=== PATIENT | female | born 1940 | race Caucasian/White ===

== ENCOUNTER 2021-07-07 12:55 | Emergency (ER) | payer OTHER ==
[2021-07-07 13:05] VITALS: BP 138/60; PULSE 81; TEMP 97.3; BMI 31.4
[2021-07-07] MEDS ORDERED: SOTROVIMAB 500 MG in SODIUM CHLORIDE 100 ML IVPB ONE (13:35)
== END 2021-07-07 17:54 | disposition home or self-care (01) ==
LOC: JER 12:55
DX: U07.1 COVID-19 (principal)
CPT/HCPCS: 99284-25; M0247; Q0247

== ENCOUNTER 2022-12-30 14:28 | Inpatient (IN) | payer OTHER ==
[2022-12-30 14:46] VITALS: BMI 26.5
[2022-12-30 16:34] LABS: BASO % 0.8 % (0-2.0); HEMATOCRIT 24.6 % (32.4-45.2); HEMOGLOBIN 8.3 GM/dL (10.7-15.3); LYMPH % 20.3 % (8-40); MCH 29.4 pg (25.7-33.7); MCHC 33.8 g/dl (32.0-36.0); MEAN CELL VOLUME 86.8 fl (80-96); MEAN PLT VOLUME 6.9 fl (7.5-11.1); MONO % 7.1 % (3.8-10.2); NEUT % 69.8 % (42.8-82.8); PLATELET COUNT 266 10^3/uL (134-434); RBC 2.83 M/mm3 (3.60-5.2); RDW 14.2 % (11.6-15.6); WHITE BLOOD COUNT 8.1 K/mm3 (4.0-10.0)
[2022-12-30 16:43] LABS: INR 1.04 (0.83-1.09); PROTHROMBIN TIME (PATIENT) 12.1 SEC (9.7-13.0)
[2022-12-30 16:46] LABS: ACTIVATED PTT 32.3 SECONDS (25.2-36.5)
[2022-12-30 17:11] LABS: POTASSIUM 3.5 mmol/L (3.5-5.1)
[2022-12-30 17:13] LABS: CALCIUM 8.8 mg/dL (8.5-10.1)
[2022-12-30 17:14] LABS: ALBUMIN 3.8 g/dl (3.4-5.0); BLOOD UREA NITROGEN 103.7 mg/dL (7-18); MAGNESIUM 2.4 mg/dL (1.8-2.4)
[2022-12-30 17:17] LABS: CREATININE 6.7 mg/dL (0.55-1.3); PHOSPHOROUS 4.8 mg/dL (2.5-4.9)
[2022-12-30 17:19] LABS: BILIRUBIN,TOTAL 0.3 mg/dL (0.2-1); TOT PROT 7.6 g/dl (6.4-8.2)
[2022-12-30 17:51] LABS: EPI CELLS 9 /uL (0-25.1); HYALINE CASTS 3 /uL (0-3.1); PH,URINE 6.5 (5.0-8.0); URINE APPEARANCE CLOUDY; URINE BACTERIA >9,000 /uL (0-1359); URINE BILIRUBIN NEGATIVE (NEGATIVE); URINE COLOR YELLOW; URINE GLUCOSE (UA) 1+ (NEGATIVE); URINE KETONE NEGATIVE (NEGATIVE); URINE LEUK ESTERASE 3+ (NEGATIVE); URINE NITRITE NEGATIVE (NEGATIVE); URINE PROTEIN 2+ (NEGATIVE); URINE RBC 14 /uL (0-23.9); URINE UROBILINOGEN 0.2 mg/dL (0.2-1.0); URINE WBC 422 /uL (0-25.8)
[2022-12-31 08:57] LABS: BASO % 0.5 % (0-2.0); EOS % 2.3 % (0-4.5); HEMATOCRIT 25.2 % (32.4-45.2); HEMOGLOBIN 8.4 GM/dL (10.7-15.3); LYMPH % 16.2 % (8-40); MCH 29.1 pg (25.7-33.7); MCHC 33.4 g/dl (32.0-36.0); MEAN CELL VOLUME 87.2 fl (80-96); MEAN PLT VOLUME 7.3 fl (7.5-11.1); MONO % 5.2 % (3.8-10.2); NEUT % 75.8 % (42.8-82.8); PLATELET COUNT 259 10^3/uL (134-434); RBC 2.89 M/mm3 (3.60-5.2); RDW 13.6 % (11.6-15.6); WHITE BLOOD COUNT 8.7 K/mm3 (4.0-10.0)
[2022-12-31 09:18] LABS: POTASSIUM 3.7 mmol/L (3.5-5.1)
[2022-12-31 09:23] LABS: ALBUMIN 3.4 g/dl (3.4-5.0); BLOOD UREA NITROGEN 102.9 mg/dL (7-18); CALCIUM 8.4 mg/dL (8.5-10.1)
[2022-12-31 09:26] LABS: CREATININE 7.1 mg/dL (0.55-1.3)
[2022-12-31 09:27] LABS: BILIRUBIN,TOTAL 0.3 mg/dL (0.2-1); TOT PROT 7.3 g/dl (6.4-8.2)
[2022-12-31] MEDS ORDERED: HEPARIN NA (PORCINE) 5,000 UNITS/ML 1ML VIAL SQ SCH (10:00)
[2022-12-31 13:28] LABS: N-TERMINAL BNP 4956.8 pg/ml (5-450)
[2022-12-31] MEDS: NIFEdipine E.R. 30 MG TABLET PO SCH (14:36)
[2022-12-31] MEDS: metoPROLOL SUCCINATE 25 MG TAB.SR.24H (FP) PO SCH (14:36)
[2022-12-31] MEDS: ATORVASTATIN CA 10 MG TABLET (FP) PO SCH (14:38)
[2022-12-31] MEDS ORDERED: INSULIN (NOVOLOG) ASPART 100 UNITS/ML 10ML VIAL ONE (16:46)
[2022-12-31] MEDS: INSULIN SLIDING SCALE (NOVOLOG) 1 VIAL SQ SCH ×2 (16:48→22:01)
[2022-12-31] MEDS: SODIUM BICARBONATE 650 MG TABLET PO SCH (16:49)
[2022-12-31] MEDS: HEPARIN NA (PORCINE) 5,000 UNITS/ML 1ML VIAL SQ SCH (22:01)
[2022-12-31] MEDS ORDERED: hydrALAZINE HCL 20 MG/ML VIAL IVPUSH ONE (22:07)
[2023-01-01] MEDS: SODIUM BICARBONATE 650 MG TABLET PO SCH (06:15)
[2023-01-01] MEDS: INSULIN SLIDING SCALE (NOVOLOG) 1 VIAL SQ SCH ×4 (06:17→21:44)
[2023-01-01] MEDS ORDERED: LIDOCAINE HCL 1%, 10 MG/ML (10ML VIAL) MDV ONE (08:30)
[2023-01-01] MEDS: HEPARIN NA (PORCINE) 5,000 UNITS/ML 1ML VIAL SQ SCH ×2 (09:00→21:38)
[2023-01-01] MEDS: ATORVASTATIN CA 10 MG TABLET (FP) PO SCH ×2 (09:00→21:38)
[2023-01-01] MEDS: metoPROLOL SUCCINATE 25 MG TAB.SR.24H (FP) PO SCH (09:15)
[2023-01-01] MEDS: NIFEdipine E.R. 30 MG TABLET PO SCH (09:15)
[2023-01-01] MEDS ORDERED: MIDAZOLAM HCL 2 MG/2 ML SINGLE DOSE VIAL ONE (09:52)
[2023-01-01] MEDS ORDERED: PROPOFOL 20 ML ONE (09:52)
[2023-01-01] MEDS ORDERED: FERROUS GLUCONATE 324 MG TAB (FP) PO SCH (10:00)
[2023-01-01] MEDS ORDERED: CALCITRIOL 0.25 MCG CAPSULE (FP) PO SCH (10:00)
[2023-01-01] MEDS ORDERED: ceFAZolin SODIUM 1 GM VIAL IVPB ONE (10:10)
[2023-01-01 10:15] LABS: BASO % 0.5 % (0-2.0); EOS % 3.3 % (0-4.5); HEMOGLOBIN 8.8 GM/dL (10.7-15.3); LYMPH % 23.2 % (8-40); MCH 29.4 pg (25.7-33.7); MCHC 33.7 g/dl (32.0-36.0); MEAN CELL VOLUME 87.2 fl (80-96); MEAN PLT VOLUME 7.1 fl (7.5-11.1); MONO % 6.9 % (3.8-10.2); NEUT % 66.1 % (42.8-82.8); PLATELET COUNT 265 10^3/uL (134-434); RBC 2.99 M/mm3 (3.60-5.2); RDW 13.8 % (11.6-15.6); WHITE BLOOD COUNT 8.6 K/mm3 (4.0-10.0)
[2023-01-01] MEDS ORDERED: LIDOCAINE 1% P/F 10 MG/ML VIAL INF ONE (10:15)
[2023-01-01 10:41] LABS: POTASSIUM 3.4 mmol/L (3.5-5.1)
[2023-01-01 10:48] LABS: BLOOD UREA NITROGEN 103.6 mg/dL (7-18)
[2023-01-01 10:49] LABS: ALBUMIN 3.5 g/dl (3.4-5.0); CALCIUM 9.1 mg/dL (8.5-10.1)
[2023-01-01 10:53] LABS: BILIRUBIN,TOTAL 0.4 mg/dL (0.2-1); CREATININE 6.7 mg/dL (0.55-1.3)
[2023-01-01 10:54] LABS: TOT PROT 7.3 g/dl (6.4-8.2)
[2023-01-01] MEDS ORDERED: LACTATED RINGERS SOLUTION 1,000 ML IV SCH (11:30)
[2023-01-01] MEDS ORDERED: POTASSIUM CHLORIDE ORAL LIQUID 20 MEQ/15 ML PO ONE ×2 (12:52→17:45)
[2023-01-01] MEDS ORDERED: SODIUM CHLORIDE 250 ML IV PRN (12:52)
[2023-01-01] MEDS ORDERED: SODIUM BICARBONATE 650 MG TABLET PO SCH (16:30)
[2023-01-02] MEDS: INSULIN SLIDING SCALE (NOVOLOG) 1 VIAL SQ SCH ×4 (06:03→21:56)
[2023-01-02 10:04] LABS: POTASSIUM 3.6 mmol/L (3.5-5.1)
[2023-01-02 10:22] LABS: CALCIUM 8.8 mg/dL (8.5-10.1)
[2023-01-02 10:23] LABS: ALBUMIN 3.2 g/dl (3.4-5.0)
[2023-01-02 10:27] LABS: BILIRUBIN,TOTAL 0.3 mg/dL (0.2-1)
[2023-01-02] MEDS: HEPARIN NA (PORCINE) 5,000 UNITS/ML 1ML VIAL SQ SCH ×2 (11:10→21:55)
[2023-01-02] MEDS: FERROUS GLUCONATE 324 MG TAB (FP) PO SCH (11:11)
[2023-01-02] MEDS: NIFEdipine E.R. 30 MG TABLET PO SCH (11:11)
[2023-01-02] MEDS: CALCITRIOL 0.25 MCG CAPSULE (FP) PO SCH (11:11)
[2023-01-02] MEDS: metoPROLOL SUCCINATE 25 MG TAB.SR.24H (FP) PO SCH (11:11)
[2023-01-02 11:29] LABS: BLOOD UREA NITROGEN 69.8 mg/dL (7-18)
[2023-01-02] MEDS: ATORVASTATIN CA 10 MG TABLET (FP) PO SCH (21:55)
[2023-01-03] MEDS: INSULIN SLIDING SCALE (NOVOLOG) 1 VIAL SQ SCH ×4 (06:18→23:53)
[2023-01-03] MEDS ORDERED: SODIUM CHLORIDE 250 ML IV PRN (07:32)
[2023-01-03] MEDS ORDERED: EPOETIN ALFA-EPBX 3,000 UNIT/ML VIAL IVPUSH ONE (09:00)
[2023-01-03 10:46] LABS: HEMATOCRIT 25.8 % (32.4-45.2); HEMOGLOBIN 8.6 GM/dL (10.7-15.3); MCH 29.7 pg (25.7-33.7); MCHC 33.3 g/dl (32.0-36.0); MEAN CELL VOLUME 89.2 fl (80-96); MEAN PLT VOLUME 7.8 fl (7.5-11.1); PLATELET COUNT 267 10^3/uL (134-434); RBC 2.89 M/mm3 (3.60-5.2); RDW 13.9 % (11.6-15.6); WHITE BLOOD COUNT 9.1 K/mm3 (4.0-10.0)
[2023-01-03 11:05] LABS: POTASSIUM 3.3 mmol/L (3.5-5.1)
[2023-01-03 11:08] LABS: BLOOD UREA NITROGEN 81.6 mg/dL (7-18); CALCIUM 8.7 mg/dL (8.5-10.1)
[2023-01-03 11:12] LABS: CREATININE 5.7 mg/dL (0.55-1.3)
[2023-01-03] MEDS ORDERED: POTASSIUM CHLORIDE ORAL LIQUID 20 MEQ/15 ML PO ONE ×2 (12:41→13:30)
[2023-01-03] MEDS: CALCITRIOL 0.25 MCG CAPSULE (FP) PO SCH (12:58)
[2023-01-03] MEDS: metoPROLOL SUCCINATE 25 MG TAB.SR.24H (FP) PO SCH (12:58)
[2023-01-03] MEDS: HEPARIN NA (PORCINE) 5,000 UNITS/ML 1ML VIAL SQ SCH ×2 (12:58→23:52)
[2023-01-03] MEDS: NIFEdipine E.R. 30 MG TABLET PO SCH (12:58)
[2023-01-03] MEDS: FERROUS GLUCONATE 324 MG TAB (FP) PO SCH (14:47)
[2023-01-03] MEDS: ATORVASTATIN CA 10 MG TABLET (FP) PO SCH (23:52)
[2023-01-04] MEDS: INSULIN SLIDING SCALE (NOVOLOG) 1 VIAL SQ SCH ×4 (06:52→22:26)
[2023-01-04] MEDS: metoPROLOL SUCCINATE 25 MG TAB.SR.24H (FP) PO SCH (09:45)
[2023-01-04] MEDS: HEPARIN NA (PORCINE) 5,000 UNITS/ML 1ML VIAL SQ SCH ×2 (09:45→22:26)
[2023-01-04] MEDS: CALCITRIOL 0.25 MCG CAPSULE (FP) PO SCH (09:45)
[2023-01-04] MEDS: NIFEdipine E.R. 30 MG TABLET PO SCH (09:45)
[2023-01-04] MEDS: FERROUS GLUCONATE 324 MG TAB (FP) PO SCH (09:45)
[2023-01-04] MEDS: ATORVASTATIN CA 10 MG TABLET (FP) PO SCH (22:25)
[2023-01-05] MEDS: INSULIN SLIDING SCALE (NOVOLOG) 1 VIAL SQ SCH ×4 (06:50→23:35)
[2023-01-05] MEDS: CALCITRIOL 0.25 MCG CAPSULE (FP) PO SCH (09:22)
[2023-01-05] MEDS: NIFEdipine E.R. 30 MG TABLET PO SCH (09:22)
[2023-01-05] MEDS: FERROUS GLUCONATE 324 MG TAB (FP) PO SCH (09:22)
[2023-01-05] MEDS: metoPROLOL SUCCINATE 25 MG TAB.SR.24H (FP) PO SCH (09:22)
[2023-01-05] MEDS: HEPARIN NA (PORCINE) 5,000 UNITS/ML 1ML VIAL SQ SCH ×2 (09:23→23:27)
[2023-01-05 14:54] VITALS: RESP 18
[2023-01-05] MEDS: ATORVASTATIN CA 10 MG TABLET (FP) PO SCH (23:24)
[2023-01-05] MEDS ORDERED: INSULIN (NOVOLOG) ASPART 100 UNITS/ML 10ML VIAL ONE (23:32)
[2023-01-06] MEDS: INSULIN SLIDING SCALE (NOVOLOG) 1 VIAL SQ SCH ×3 (07:10→16:42)
[2023-01-06] MEDS ORDERED: SODIUM CHLORIDE 250 ML IV PRN (07:18)
[2023-01-06 09:56] LABS: BASO % 1.2 % (0-2.0); EOS % 3.6 % (0-4.5); HEMATOCRIT 24.4 % (32.4-45.2); HEMOGLOBIN 8.4 GM/dL (10.7-15.3); LYMPH % 19.1 % (8-40); MCH 30.7 pg (25.7-33.7); MCHC 34.3 g/dl (32.0-36.0); MEAN CELL VOLUME 89.5 fl (80-96); MEAN PLT VOLUME 7.8 fl (7.5-11.1); MONO % 8.4 % (3.8-10.2); NEUT % 67.7 % (42.8-82.8); PLATELET COUNT 277 10^3/uL (134-434); RBC 2.72 M/mm3 (3.60-5.2); RDW 13.7 % (11.6-15.6); WHITE BLOOD COUNT 9.6 K/mm3 (4.0-10.0)
[2023-01-06 11:38] LABS: POTASSIUM 3.8 mmol/L (3.5-5.1)
[2023-01-06 11:40] LABS: ALBUMIN 3.1 g/dl (3.4-5.0); BLOOD UREA NITROGEN 85.7 mg/dL (7-18); CALCIUM 8.6 mg/dL (8.5-10.1)
[2023-01-06 11:44] LABS: CREATININE 6.2 mg/dL (0.55-1.3)
[2023-01-06 11:46] LABS: BILIRUBIN,TOTAL 0.2 mg/dL (0.2-1)
[2023-01-06] MEDS: metoPROLOL SUCCINATE 25 MG TAB.SR.24H (FP) PO SCH (12:28)
[2023-01-06] MEDS: NIFEdipine E.R. 30 MG TABLET PO SCH (12:28)
[2023-01-06] MEDS: CALCITRIOL 0.25 MCG CAPSULE (FP) PO SCH (12:28)
[2023-01-06] MEDS: FERROUS GLUCONATE 324 MG TAB (FP) PO SCH (12:29)
[2023-01-06] MEDS: HEPARIN NA (PORCINE) 5,000 UNITS/ML 1ML VIAL SQ SCH (12:29)
[2023-01-06 14:07] VITALS: BP 173/96; PULSE 83; TEMP 98.1
== END 2023-01-06 18:05 | disposition home or self-care (01) | DRG 682 ==
LOC: JER 14:28 → JERBED 15:57 → J6S 18:54
PROVIDERS: ADMIT Internal Medicine; ATTEND Internal Medicine
PROC: 5A1D70Z Performance of Urinary Filtration, Intermittent, Less than 6 Hours Per Day (ICD-10-PCS; 2023-01-01)
PROC: 5A1D70Z Performance of Urinary Filtration, Intermittent, Less than 6 Hours Per Day (ICD-10-PCS; 2023-01-01)
PROC: 05HM33Z Insertion of Infusion Device into Right Internal Jugular Vein, Percutaneous Approach (ICD-10-PCS; principal; 2023-01-01 09:30)
DX: I12.0 Hypertensive chronic kidney disease with stage 5 chronic kidney disease or end stage renal disease (principal); N18.6 End stage renal disease; E87.29 Other acidosis; N39.0 Urinary tract infection, site not specified; E11.22 Type 2 diabetes mellitus with diabetic chronic kidney disease; Z99.2 Dependence on renal dialysis; E78.5 Hyperlipidemia, unspecified; D64.9 Anemia, unspecified; E87.6 Hypokalemia; I77.0 Arteriovenous fistula, acquired; B96.1 Klebsiella pneumoniae [K. pneumoniae] as the cause of diseases classified elsewhere
CPT/HCPCS: 36415; 71045-TC-FY; 76000-TC-FY; 80048; 80053; 80061; 81003; 82962; 83036; 83735; 83880; 84100; 84443; 85025; 85027; 85610; 85730; 86704; 86705; 86803; 86850; 86900; 86901; 87086; 87186; 87340; 87517; 93005; 93010; 93306-TC; 94760; 99285-25; C1750; J1644; Q5106

== ENCOUNTER 2023-04-02 04:39 | Day surgery (SDC) | payer OTHER ==
[2023-04-01 12:44] VITALS: BMI 26.2
[2023-04-02] MEDS ORDERED: HEPARIN NA (PORCINE) 5,000 UNITS/ML 1ML VIAL ONE (07:22)
[2023-04-02] MEDS ORDERED: LIDOCAINE HCL 1%, 10 MG/ML (20ML VIAL) ONE (07:22)
[2023-04-02] MEDS ORDERED: PAPAVERINE HCL 30 MG/1 ML 10 ML VIAL NR ONE (07:22)
[2023-04-02] MEDS ORDERED: PROPOFOL 20 ML ONE (07:52)
[2023-04-02] MEDS ORDERED: MIDAZOLAM HCL 2 MG/2 ML SINGLE DOSE VIAL ONE (07:52)
[2023-04-02] MEDS ORDERED: FENTANYL CITRATE/PF 50 MCG/ML VIAL ONE (07:52)
[2023-04-02] MEDS ORDERED: ceFAZolin SODIUM 1 GM VIAL IVPB ONE (08:12)
[2023-04-02] MEDS ORDERED: LIDOCAINE HCL 1%, 10 MG/ML (20ML VIAL) INF ONE ×2 (08:31)
[2023-04-02] MEDS ORDERED: HEPARIN NA (PORCINE) 5,000 UNITS/ML 1ML VIAL SQ ONE (08:35)
[2023-04-02] MEDS ORDERED: POVIDONE-IODINE OINTMENT 10% - 28.4 GM TUBE ONE (08:41)
[2023-04-02] MEDS ORDERED: oxyCODONE HCL 5 MG TABLET PO PRN (09:50)
[2023-04-02] MEDS ORDERED: ONDANSETRON 4 MG/2 ML VIAL IVPUSH PRN (09:50)
[2023-04-02 11:59] VITALS: PULSE 80; RESP 20
[2023-04-02 12:40] VITALS: BP 141/62; TEMP 98.2
== END 2023-04-02 12:45 | disposition home or self-care (01) ==
LOC: JASU-SURG 04:39
PROVIDERS: ATTEND Surgery
PROC: 03180ZD Bypass Left Brachial Artery to Upper Arm Vein, Open Approach (ICD-10-PCS; principal; 2023-04-02 08:00)
DX: I12.0 Hypertensive chronic kidney disease with stage 5 chronic kidney disease or end stage renal disease (principal); E11.22 Type 2 diabetes mellitus with diabetic chronic kidney disease; N18.6 End stage renal disease
CPT/HCPCS: 36415; 82962; 84132; 94760; J1644

== ENCOUNTER 2023-05-14 04:17 | Day surgery (SDC) | payer OTHER ==
[2023-05-12 09:55] VITALS: BMI 29.8
[2023-05-14] MEDS ORDERED: PAPAVERINE HCL 30 MG/1 ML 10 ML VIAL NR ONE (07:23)
[2023-05-14] MEDS ORDERED: LIDOCAINE HCL 1%, 10 MG/ML (20ML VIAL) ONE (07:23)
[2023-05-14] MEDS ORDERED: HEPARIN NA (PORCINE) 5,000 UNITS/ML 1ML VIAL ONE ×2 (07:23→10:21)
[2023-05-14] MEDS ORDERED: MIDAZOLAM HCL 2 MG/2 ML SINGLE DOSE VIAL ONE ×2 (08:04→08:36)
[2023-05-14] MEDS ORDERED: ceFAZolin SODIUM 1 GM VIAL IVPB ONE ×2 (08:20→08:21)
[2023-05-14] MEDS ORDERED: FENTANYL CITRATE/PF 50 MCG/ML VIAL ONE (08:54)
[2023-05-14] MEDS ORDERED: POVIDONE-IODINE OINTMENT 10% - 28.4 GM TUBE ONE (09:29)
[2023-05-14] MEDS ORDERED: METOCLOPRAMIDE HCL INJECTION 10 MG/2 ML VIAL ONE (10:21)
[2023-05-14] MEDS ORDERED: ONDANSETRON 4 MG/2 ML VIAL ONE (10:21)
[2023-05-14 12:06] VITALS: RESP 20
[2023-05-14 14:11] VITALS: BP 126/60; PULSE 72; TEMP 97.5
== END 2023-05-14 13:20 | disposition home or self-care (01) ==
LOC: JASU-SURG 04:17
PROVIDERS: ATTEND Surgery
PROC: 05WY03Z Revision of Infusion Device in Upper Vein, Open Approach (ICD-10-PCS; principal; 2023-05-14 08:00)
DX: E11.22 Type 2 diabetes mellitus with diabetic chronic kidney disease (principal); I12.0 Hypertensive chronic kidney disease with stage 5 chronic kidney disease or end stage renal disease; N18.6 End stage renal disease; Z79.4 Long term (current) use of insulin
CPT/HCPCS: 36415; 73090-TC-LT-FY; 82962; 84132; 94760; J1644

== ENCOUNTER 2024-01-28 14:39 | Inpatient (IN) | payer OTHER ==
[2024-01-28] MEDS ORDERED: ACETAMINOPHEN INJECTION 100 ML IVPB ONE (16:48)
[2024-01-28 17:03] LABS: BASO % 0.7 % (0-2.0); EOS % 2.1 % (0-4.5); HEMATOCRIT 31.4 % (32.4-45.2); HEMOGLOBIN 10.7 GM/dL (10.7-15.3); LYMPH % 12.2 % (8-40); MCH 30.4 pg (25.7-33.7); MCHC 34.2 g/dl (32.0-36.0); MEAN PLT VOLUME 7.2 fl (7.5-11.1); MONO % 8.2 % (3.8-10.2); NEUT % 76.8 % (42.8-82.8); PLATELET COUNT 305 10^3/uL (134-434); RBC 3.53 M/mm3 (3.60-5.2); WHITE BLOOD COUNT 9.9 K/mm3 (4.0-10.0)
[2024-01-28] MEDS: ACETAMINOPHEN 1000 MG/100 ML BAG IVPB ONE (17:03)
[2024-01-28 17:24] LABS: POTASSIUM 3.9 mmol/L (3.5-5.1)
[2024-01-28 17:26] LABS: ALBUMIN 3.4 g/dl (3.4-5.0); BLOOD UREA NITROGEN 34.9 mg/dL (7-18); CALCIUM 9.1 mg/dL (8.5-10.1); MAGNESIUM 2.2 mg/dL (1.8-2.4)
[2024-01-28 17:29] LABS: CREATININE 3.8 mg/dL (0.55-1.3)
[2024-01-28 17:30] LABS: ACTIVATED PTT 32.6 SECONDS (25.2-36.5); INR 1.07 (0.83-1.09); PHOSPHOROUS 2.5 mg/dL (2.5-4.9); PROTHROMBIN TIME (PATIENT) 12.3 SEC (9.7-13.0)
[2024-01-28 17:31] LABS: BILIRUBIN,TOTAL 0.6 mg/dL (0.2-1); TOT PROT 7.4 g/dl (6.4-8.2)
[2024-01-28] MEDS ORDERED: HEPARIN INFUSION - 25,000 UNITS/500 ML INFUS.BAG IVPB ONE (18:00)
[2024-01-28] MEDS ORDERED: HEPARIN NA (PORCINE) 5,000 UNITS/ML 1ML VIAL ONE (18:01)
[2024-01-28] MEDS: HEPARIN NA (PORCINE) 5,000 UNITS/ML 1ML VIAL IVPUSH ONE (18:06)
[2024-01-28] MEDS: HEPARIN INFUSION - 25,000 UNITS/500 ML INFUS.BAG IVPB SCH (18:06)
[2024-01-28] MEDS: PANTOPRAZOLE SODIUM 40 MG VIAL IVPUSH ONE (20:27)
[2024-01-29] MEDS: oxyCODONE HCL 5 MG TABLET PO PRN (01:28)
[2024-01-29] MEDS: ACETAMINOPHEN 325 MG TABLET (FP) PO PRN (01:29)
[2024-01-29] MEDS ORDERED: HEPARIN NA (PORCINE) 5,000 UNITS/ML 1ML VIAL IVPUSH PRN (10:00)
[2024-01-29 13:45] LABS: INR 1.12 (0.83-1.09); PROTHROMBIN TIME (PATIENT) 12.6 SEC (9.7-13.0)
[2024-01-29 13:48] LABS: ACTIVATED PTT 43.4 SECONDS (25.2-36.5)
[2024-01-29] MEDS ORDERED: SODIUM CHLORIDE 250 ML IV PRN (14:04)
[2024-01-29] MEDS: HEPARIN NA (PORCINE) 5,000 UNITS/ML 1ML VIAL IVPUSH PRN (14:17)
[2024-01-29 17:57] VITALS: BMI 28.7
[2024-01-29] MEDS: INSULIN ASPART SLIDING SCALE (NOVOLOG) 1 VIAL SQ SCH (21:30)
[2024-01-29] MEDS: ATORVASTATIN CA 10 MG TABLET (FP) PO SCH (21:30)
[2024-01-30] MEDS: metoPROLOL SUCCINATE 25 MG TAB.SR.24H (FP) PO SCH (09:13)
[2024-01-30 10:13] LABS: BASO % 0.4 % (0-2.0); EOS % 1.4 % (0-4.5); HEMATOCRIT 31.3 % (32.4-45.2); HEMOGLOBIN 10.3 GM/dL (10.7-15.3); LYMPH % 11.4 % (8-40); MCH 29.7 pg (25.7-33.7); MCHC 32.9 g/dl (32.0-36.0); MEAN CELL VOLUME 90.4 fl (80-96); MEAN PLT VOLUME 7.5 fl (7.5-11.1); MONO % 7.6 % (3.8-10.2); NEUT % 79.2 % (42.8-82.8); PLATELET COUNT 314 10^3/uL (134-434); RBC 3.46 M/mm3 (3.60-5.2); RDW 14.4 % (11.6-15.6); WHITE BLOOD COUNT 11.1 K/mm3 (4.0-10.0)
[2024-01-30 10:21] LABS: POTASSIUM 3.9 mmol/L (3.5-5.1)
[2024-01-30 10:28] LABS: CHOLESTEROL 124 mg/dL (50-200)
[2024-01-30 10:30] LABS: HDL CHOLESTEROL 53 mg/dL (40-60); LDL CHOLESTEROL (ONLY SJRH) 52 mg/dL (5-100)
[2024-01-30 10:32] LABS: ALBUMIN 2.9 g/dl (3.4-5.0); BLOOD UREA NITROGEN 22.4 mg/dL (7-18); CALCIUM 8.7 mg/dL (8.5-10.1); MAGNESIUM 1.9 mg/dL (1.8-2.4)
[2024-01-30 10:36] LABS: CREATININE 3.2 mg/dL (0.55-1.3); PHOSPHOROUS 1.6 mg/dL (2.5-4.9)
[2024-01-30 10:37] LABS: BILIRUBIN,TOTAL 0.6 mg/dL (0.2-1); TOT PROT 6.8 g/dl (6.4-8.2)
[2024-01-30] MEDS ORDERED: SODIUM CHLORIDE 250 ML IV PRN ×3 (14:36→21:31)
[2024-01-30] MEDS ORDERED: HEPARIN NA (PORCINE) 5,000 UNITS/ML 1ML VIAL ONE (14:41)
[2024-01-30] MEDS ORDERED: POVIDONE-IODINE OINTMENT 10% - 28.4 GM TUBE ONE (14:41)
[2024-01-30] MEDS: ceFAZolin SODIUM 1 GM VIAL IVPB ONE (15:50)
[2024-01-30] MEDS ORDERED: PAPAVERINE HCL 30 MG/1 ML 10 ML VIAL NR ONE ×2 (15:55→17:54)
[2024-01-30] MEDS ORDERED: LACTATED RINGERS SOLUTION 1,000 ML IV SCH (16:45)
[2024-01-30 19:13] LABS: HEMATOCRIT 27.8 % (32.4-45.2); HEMOGLOBIN 9.3 GM/dL (10.7-15.3); MCH 30.2 pg (25.7-33.7); MCHC 33.4 g/dl (32.0-36.0); MEAN CELL VOLUME 90.3 fl (80-96); MEAN PLT VOLUME 7.3 fl (7.5-11.1); PLATELET COUNT 274 10^3/uL (134-434); RBC 3.08 M/mm3 (3.60-5.2); RDW 14.4 % (11.6-15.6); WHITE BLOOD COUNT 10.9 K/mm3 (4.0-10.0)
[2024-01-30] MEDS ORDERED: SUGAMMADEX SODIUM 200 MG/2 ML VIAL ONE (20:31)
[2024-01-30 20:32] LABS: ALBUMIN 2.5 g/dl (3.4-5.0); BILIRUBIN,TOTAL 0.6 mg/dL (0.2-1); BLOOD UREA NITROGEN 26.4 mg/dL (7-18); CALCIUM 8.8 mg/dL (8.5-10.1); CREATININE 3.7 mg/dL (0.55-1.3); POTASSIUM 3.7 mmol/L (3.5-5.1)
[2024-01-30] MEDS ORDERED: ONDANSETRON 4 MG/2 ML VIAL IVPUSH PRN (21:00)
[2024-01-30] MEDS: ACETAMINOPHEN 1000 MG/100 ML BAG IVPB SCH (21:44)
[2024-01-30] MEDS ORDERED: ceFAZolin SODIUM 1 GM VIAL ONE (21:55)
[2024-01-30] MEDS: CEFAZOLIN 500 MG in DEXTROSE 5%-WATER - 50 ML IVPB SCH (21:56)
[2024-01-30] MEDS: ATORVASTATIN CA 10 MG TABLET (FP) PO SCH (22:00)
[2024-01-30] MEDS: CHLORHEXIDINE GLUCONATE 4% CLEANSER FOR DECOLONIZATION TP SCH (22:52)
[2024-01-30] MEDS: LACTATED RINGERS SOLUTION 1,000 ML IV SCH (22:52)
[2024-01-30] MEDS: MUPIROCIN 2% TOPICAL OINTMENT FOR DECOLONIZATION NS SCH (23:00)
[2024-01-31] MEDS: INSULIN ASPART SLIDING SCALE (NOVOLOG) 1 VIAL SQ SCH (06:37)
[2024-01-31 07:17] LABS: BASO % 0.4 % (0-2.0); EOS % 1.6 % (0-4.5); HEMATOCRIT 24.7 % (32.4-45.2); HEMOGLOBIN 8.4 GM/dL (10.7-15.3); LYMPH % 11.5 % (8-40); MCH 30.9 pg (25.7-33.7); MCHC 34.2 g/dl (32.0-36.0); MEAN CELL VOLUME 90.3 fl (80-96); MEAN PLT VOLUME 7.4 fl (7.5-11.1); MONO % 6.7 % (3.8-10.2); NEUT % 79.8 % (42.8-82.8); PLATELET COUNT 260 10^3/uL (134-434); RBC 2.74 M/mm3 (3.60-5.2); RDW 14.3 % (11.6-15.6); WHITE BLOOD COUNT 8.7 K/mm3 (4.0-10.0)
[2024-01-31 07:31] LABS: POTASSIUM 3.9 mmol/L (3.5-5.1)
[2024-01-31 07:36] LABS: BLOOD UREA NITROGEN 32.3 mg/dL (7-18); CALCIUM 7.9 mg/dL (8.5-10.1)
[2024-01-31 07:40] LABS: CREATININE 4.2 mg/dL (0.55-1.3)
[2024-01-31] MEDS: EPOETIN ALFA-EPBX 4,000 UNIT/ML VIAL IVPUSH ONE (10:00)
[2024-01-31] MEDS: HEPARIN NA (PORCINE) 5,000 UNITS/ML 1ML VIAL SQ SCH (10:16)
[2024-01-31] MEDS: metoPROLOL SUCCINATE 25 MG TAB.SR.24H (FP) PO SCH (10:16)
[2024-01-31] MEDS ORDERED: EPOETIN ALFA-EPBX 4,000 UNIT/ML VIAL IVPUSH ONE (14:36)
[2024-01-31] MEDS: ACETAMINOPHEN 325 MG TABLET (FP) PO SCH (21:27)
[2024-02-01] MEDS: oxyCODONE HCL 5 MG TABLET PO PRN (04:46)
[2024-02-01 07:46] LABS: BASO % 0.6 % (0-2.0); EOS % 1.8 % (0-4.5); HEMATOCRIT 23.5 % (32.4-45.2); HEMATOCRIT 23.9 % (32.4-45.2); HEMOGLOBIN 8.1 GM/dL (10.7-15.3); LYMPH % 15.7 % (8-40); MCH 30.5 pg (25.7-33.7); MCH 30.6 pg (25.7-33.7); MCHC 33.9 g/dl (32.0-36.0); MEAN CELL VOLUME 89.9 fl (80-96); MEAN CELL VOLUME 90.1 fl (80-96); MEAN PLT VOLUME 7.3 fl (7.5-11.1); MEAN PLT VOLUME 7.5 fl (7.5-11.1); MONO % 8.1 % (3.8-10.2); NEUT % 73.8 % (42.8-82.8); PLATELET COUNT 261 10^3/uL (134-434); PLATELET COUNT 262 10^3/uL (134-434); RBC 2.61 M/mm3 (3.60-5.2); RBC 2.65 M/mm3 (3.60-5.2); RDW 14.3 % (11.6-15.6); RDW 14.4 % (11.6-15.6); WHITE BLOOD COUNT 10.4 K/mm3 (4.0-10.0); WHITE BLOOD COUNT 10.6 K/mm3 (4.0-10.0)
[2024-02-01 08:13] LABS: ALBUMIN 2.3 g/dl (3.4-5.0); BLOOD UREA NITROGEN 26.4 mg/dL (7-18); CALCIUM 7.9 mg/dL (8.5-10.1); MAGNESIUM 1.7 mg/dL (1.8-2.4)
[2024-02-01 08:16] LABS: CREATININE 3.6 mg/dL (0.55-1.3)
[2024-02-01 08:18] LABS: BILIRUBIN,TOTAL 0.4 mg/dL (0.2-1)
[2024-02-02] MEDS ORDERED: LACTATED RINGERS SOLUTION 1,000 ML IV SCH (08:19)
[2024-02-02] MEDS: ACETAMINOPHEN 325 MG TABLET (FP) PO SCH (08:50)
[2024-02-02] MEDS: metoPROLOL SUCCINATE 25 MG TAB.SR.24H (FP) PO SCH (10:41)
[2024-02-02] MEDS: HEPARIN NA (PORCINE) 5,000 UNITS/ML 1ML VIAL SQ SCH (10:42)
[2024-02-02] MEDS: INSULIN ASPART SLIDING SCALE (NOVOLOG) 1 VIAL SQ SCH (12:30)
[2024-02-02] MEDS: ATORVASTATIN CA 10 MG TABLET (FP) PO SCH (21:56)
[2024-02-03] MEDS ORDERED: SODIUM CHLORIDE 250 ML IV PRN (09:00)
[2024-02-03] MEDS: EPOETIN ALFA-EPBX 10,000 UNIT/ML VIAL SQ ONE (09:28)
[2024-02-03 09:46] LABS: HEMATOCRIT 23.7 % (32.4-45.2); MCH 30.6 pg (25.7-33.7); MCHC 33.9 g/dl (32.0-36.0); MEAN CELL VOLUME 90.1 fl (80-96); MEAN PLT VOLUME 7.3 fl (7.5-11.1); PLATELET COUNT 293 10^3/uL (134-434); RBC 2.63 M/mm3 (3.60-5.2); RDW 14.2 % (11.6-15.6)
[2024-02-03 10:10] LABS: POTASSIUM 3.7 mmol/L (3.5-5.1)
[2024-02-03 10:16] LABS: BLOOD UREA NITROGEN 49.5 mg/dL (7-18)
[2024-02-03 10:17] LABS: CALCIUM 8.5 mg/dL (8.5-10.1)
[2024-02-03 10:43] LABS: CREATININE 4.6 mg/dL (0.55-1.3)
[2024-02-03] MEDS: RIVAROXABAN 2.5 MG TABLET PO SCH (12:43)
[2024-02-03] MEDS: CLOPIDOGREL BISULFATE 75 MG TABLET (FP) PO SCH (12:43)
[2024-02-03 19:07] VITALS: RESP 18
[2024-02-03] MEDS: oxyCODONE HCL 5 MG TABLET PO PRN (20:06)
[2024-02-04 09:01] VITALS: BP 155/66; PULSE 81; TEMP 98.8
[2024-02-04] MEDS ORDERED: SODIUM CHLORIDE 250 ML IV PRN (12:22)
[2024-02-05] MEDS ORDERED: EPOETIN ALFA-EPBX 10,000 UNIT/ML VIAL SQ ONE (12:22)
== END 2024-02-04 13:17 | disposition home or self-care (01) | DRG 270 ==
LOC: JER 14:39 → JERBED 17:44 → J6S 18:50 → OBSVTOIN 01-29 00:15 → JICU 01-30 22:29 → J4W 02-01 01:04
PROVIDERS: ATTEND Internal Medicine
PROC: 5A1D70Z Performance of Urinary Filtration, Intermittent, Less than 6 Hours Per Day (ICD-10-PCS; 2024-01-29)
PROC: 041 Lower Arteries, Bypass (ICD-10-PCS; 2024-01-30)
PROC: 04CM3ZZ Extirpation of Matter from Right Popliteal Artery, Percutaneous Approach (ICD-10-PCS; principal; 2024-01-30 17:30)
DX: E11.52 Type 2 diabetes mellitus with diabetic peripheral angiopathy with gangrene (principal); N18.6 End stage renal disease; E11.22 Type 2 diabetes mellitus with diabetic chronic kidney disease; E11.621 Type 2 diabetes mellitus with foot ulcer; Z99.2 Dependence on renal dialysis; D64.9 Anemia, unspecified; L97.519 Non-pressure chronic ulcer of other part of right foot with unspecified severity; Z79.4 Long term (current) use of insulin
CPT/HCPCS: 36415; 73590-TC-RT-FY; 76000-TC-FY; 80048; 80053; 80061; 82962; 83036; 83735; 84100; 84439; 84443; 85025; 85027; 85610; 85730; 86704; 86705; 86803; 86850; 86900; 86901; 86922; 87340; 87517; 88304-TC; 88311-TC; 93005; 93010; 93306-TC; 93922; 93926-TC; 93971; 94760; 97116-GP; 97161-GP; 99285-25; C1757; G0378; G0463-25; J0131; J1644; Q5106